=== PATIENT | female | born 1995 | race African-American/Black ===

== ENCOUNTER 2017-04-26 15:36 | Emergency (ER) | payer BC, SELFPAY ==
[2017-04-26 17:03] VITALS: BP 122/65; PULSE 92; RESP 20; TEMP 36.7; O2SAT 98; BMI 41.8
--- NOTE | 2017-04-26 17:46 | HMH.EDUTC ---
[facility] [place] Clinical Impression: Muscle spasm Disposition: Home, Self-Care Condition on Discharge: Good Instructions: DI for Muscle Spasm Additional Instructions: Take medication as prescribed Follow up with family doctor Return if needed Use over the counter Biofreeze may help to relieve pain and tension *Ibuprofen tone 6 hours with meal as needed for pain/inflammation Not additional anti-inflammatory like motrin, aleve, advil with the above amount of ibuprofen. You can still take Tylenol every 4 hours as needed if you need something else for pain *Ice 20 minutes every 2 hours for the first 48 hours after the initial injury followed by moist heat every 20 minutes 3-4 times a day to affected area *Muscle relaxer every 8 hours as needed for muscle spasms but remember, it WILL cause drowsiness You cannot take it and drive, operate machinery or care for small children. *Keep this area active, no movement leads to more stiffness, However take it easy and avoid heavy lifting pushing or pulling Prescriptions: Cyclobenzaprine HCl [Flexeril 10mg tablet] 10 mg PO TID #15 tab Ibuprofen [Ibuprofen 600mg Tab] 600 mg PO Q6H PRN #20 tab PRN Reason: Moderate Pain Forms: Work/School Release Time of Disposition: 18:07 Medical Decision Making Vital Signs: 04/26/17 17:03 Temperature 98.1 F Temperature Source Temporal Artery Scan Pulse Rate [Brachial] 92 H Respiratory Rate 20 Blood Pressure [Right Arm] 122/65 Blood Pressure Mean [Right Arm] 84 Blood Pressure Source [Right Arm] Automatic Cuff Blood Pressure Position [Right Arm] Sitting 02 Sat by Pulse Oximetry 98 Oxygen Delivery Method Room Air - Casper Inquiry Pt receiving controlled substance: No [place] was queried for this patient: No - Reevaluation(s) Time: 18:08 Reevaluation #1: Patient denies chance of [facility] [place] General Stated complaint: Back and Shoulder Pain Mode of Arrival: Ambulatory Source of Information: Patient Limitations: No Limitations Description of Symptoms (Recalled from Triage Doc. by RN): PAIN FROM RT SIDE OF THE NECK TO RT SHOULDER X 3 DAYS HEENT Symptoms (Recalled from RN notes): No Resp Symptoms (Recalled from RN notes): No Skin Symptoms (Recalled from RN notes): No MS Symptoms (Recalled from RN notes): Yes Functional Status (Recalled from RN notes): NA - History of Present Illness Provider Complaint: Patient state that she often has to lift boxes at work States that she feels like she pulled a muscle or having a muscle spasm in her neck State that it feels tight in her shoulders and she can feel the muscle tighten up when she moves it - Related Data Previous Rx's Medication Instructions Recorded Cyclobenzaprine HCl [Flexeril 10mg 10 mg PO TID #15 tab 04/26/17 tablet] Ibuprofen [Ibuprofen 600mg Tab] 600 mg PO Q6H PRN #20 tab 04/26/17 Allergies Allergy/AdvReac Type Severity Reaction Status Date / Time latex Allergy Intermediate Verified 04/26/17 16:38 - Worker's Comp Is this a Worker's Comp case?: No [facility] History I have reviewed the patient's past medical history: Yes - Social History Alcohol Intake: never - Psychiatric History Expresses thoughts of harming self/others: None Suicide Plan Description: No Plan ROS Obtained: Yes All systems reviewed & no additional complaints - Musculoskeletal Musculoskeletal: Reports other (Muscle spasm in right shoulderhurts worse when turns her head or moves arm) Physical Exam - General General appearance: alert, in no apparent distress - Neck Neck exam: Present: normal inspection - Respiratory Respiratory exam: Present: normal lung sounds bilaterally. Absent: respiratory distress - Cardiovascular Cardiovascular exam: Present: regular rate, normal rhythm. Absent: JVD - Back Exam Back 1 view image: 1 - muscle spasm and soreness worsens with movement Comment:
--- NOTE | 2017-04-26 17:57 | ED_ITS ---
[facility] [place] Clinical Impression: Muscle spasm Disposition: Home, Self-Care Condition on Discharge: Good Instructions: DI for Muscle Spasm Additional Instructions: Take medication as prescribed Follow up with family doctor Return if needed Use over the counter Biofreeze may help to relieve pain and tension *Ibuprofen tone 6 hours with meal as needed for pain/inflammation Not additional anti-inflammatory like motrin, aleve, advil with the above amount of ibuprofen. You can still take Tylenol every 4 hours as needed if you need something else for pain *Ice 20 minutes every 2 hours for the first 48 hours after the initial injury followed by moist heat every 20 minutes 3-4 times a day to affected area *Muscle relaxer every 8 hours as needed for muscle spasms but remember, it WILL cause drowsiness You cannot take it and drive, operate machinery or care for small children. *Keep this area active, no movement leads to more stiffness, However take it easy and avoid heavy lifting pushing or pulling Prescriptions: Cyclobenzaprine HCl [Flexeril 10mg tablet] 10 mg PO TID #15 tab Ibuprofen [Ibuprofen 600mg Tab] 600 mg PO Q6H PRN #20 tab PRN Reason: Moderate Pain Forms: Work/School Release Time of Disposition: 18:07 Medical Decision Making Vital Signs: 04/26/17 17:03 Temperature 98.1 F Temperature Source Temporal Artery Scan Pulse Rate [Brachial] 92 H Respiratory Rate 20 Blood Pressure [Right Arm] 122/65 Blood Pressure Mean [Right Arm] 84 Blood Pressure Source [Right Arm] Automatic Cuff Blood Pressure Position [Right Arm] Sitting 02 Sat by Pulse Oximetry 98 Oxygen Delivery Method Room Air - Cas[place] Inquiry Pt receiving controlled substance: No [place] was queried for this patient: No - Reevaluation(s) Time: 18:08 Reevaluation #1: Patient denies chance of [facility] [place] HPI - General Stated complaint: Back and Shoulder Pain Mode of Arrival: Ambulatory Source of Information: Patient Limitations: No Limitations Description of Symptoms (Recalled from Triage Doc. by RN): PAIN FROM RT SIDE OF THE NECK TO RT SHOULDER X 3 DAYS HEENT Symptoms (Recalled from RN notes): No Resp Symptoms (Recalled from RN notes): No Skin Symptoms (Recalled from RN notes): No MS Symptoms (Recalled from RN notes): Yes Functional Status (Recalled from RN notes): NA - History of Present Illness Provider Complaint: Patient state that she often has to lift boxes at work States that she feels like she pulled a muscle or having a muscle spasm in her neck State that it feels tight in her shoulders and she can feel the muscle tighten up when she moves it - Related Data Previous Rx's Medication Instructions Recorded Cyclobenzaprine HCl [Flexeril 10mg 10 mg PO TID #15 tab 04/26/17 tablet] Ibuprofen [Ibuprofen 600mg Tab] 600 mg PO Q6H PRN #20 tab 04/26/17 Allergies Allergy/AdvReac Type Severity Reaction Status Date / Time latex Allergy Intermediate Verified 04/26/17 16:38 - Worker's Comp Is this a Worker's Comp case?: No [facility] History I have reviewed the patient's past medical history: Yes - Social History Alcohol Intake: never - Psychiatric History Expresses thoughts of harming self/others: None Suicide Plan Description: No Plan ROS Obtained: Yes All systems reviewed & no additional complaints - Musculoskeletal M
[2017-04-26 18:22] VITALS: BP 122/65; PULSE 92; RESP 20; TEMP 36.7; O2SAT 98
== END 2017-04-26 18:23 | disposition home or self-care (01) ==
PROVIDERS: Emergency Provider Nurse Practitioner
DX: M62.838 Other muscle spasm (principal); M25.511 Pain in right shoulder; Z91.040 Latex allergy status
CPT/HCPCS: 99202

== ENCOUNTER 2023-07-26 19:38 | Emergency (ER) | payer MEDICAID, SELFPAY ==
[2023-07-26 19:38] VITALS: BP 162/92; PULSE 118; RESP 15; TEMP 37.4; O2SAT 98; BMI 47.3
--- NOTE | 2023-07-26 19:48 | XR_ITS ---
PROCEDURE INFORMATION: Exam: XR Chest Exam date and time: 07/26/23 08:20 PM Age: 27 years old Clinical indication: Shortness of breath; Additional info: SOA, tachycardia TECHNIQUE: Imaging protocol: Radiologic exam of the chest. Views: 1 view. COMPARISON: No relevant prior studies available. FINDINGS: Lungs: Unremarkable. No consolidation. Pleural spaces: Unremarkable. No pleural effusion. No pneumothorax. Heart/Mediastinum: Unremarkable. No cardiomegaly. Bones/joints: Unremarkable. IMPRESSION: No acute findings.
[2023-07-26] MEDS: LORazepam 1MG TABLET 1 MG PO (19:53)
--- NOTE | 2023-07-26 19:54 | ECG_ITS ---
APPROVED REPORT Exam: Resting ECG HR:110 bpm ECG Measurements Heart Rate 110 AXES MN 149 P 60 QRSd 85 QRS 59 QT 286 T 17 QTc 351 Conclusion SINUS TACHYCARDIA Electronically signed by : LAST LOZANO, 07/26/2023 22:40:12
[2023-07-26 19:55] LABS: Basophils # 0.1 K/mm3 (0-0.2); Basophils % 0.8 % (0.1-2.0); Eosinophils # 0.1 K/mm3 (0.0-0.4); Eosinophils % 1.3 % (0.1-12.0); Hematocrit 40.5 % (37.0-47.0); Hemoglobin 13.1 g/dL (12.2-16.2); Lymphocytes % 30.5 % (10-50); Mean Corpuscular HGB Conc 32.3 g/dL (31.8-35.4); Mean Corpuscular Hemoglobin 28.1 pg (27.0-31.2); Mean Corpuscular Volume 86.8 fl (81-99); Mean Platelet Volume 7.5 fl (7.4-10.4); Monocytes # 0.3 K/mm3 (0.1-1.0); Monocytes % 4.3 % (1.7-9.3); Neutrophils # 4.2 K/mm3 (1.8-7.8); Neutrophils % 63.1 % (37.0-80.0); Platelet Count 443 K/mm3 (142-424); Red Blood Count 4.66 M/mm3 (4.20-5.40); Red Cell Distribution Width 15.2 % (11.5-17.5); White Blood Count 6.7 K/mm3 (4.8-10.8)
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
[2023-07-26 20:01] LABS: Magnesium 1.5 mg/dl (1.6-2.3)
[2023-07-26 20:03] LABS: Alanine Aminotransferase 28 U/L (12-78); Albumin Level 4.5 g/dl (3.5-5.0); Albumin/Globulin Ratio 1.3 (1.1-1.8); Alkaline Phosphatase 96 U/L (38-126); Anion Gap 19.5 mEq/L (5-15); Aspartate Amino Transferase 33 U/L (14-36); Bilirubin,Total 0.5 mg/dl (0.2-1.3); Blood Urea Nitrogen 10 mg/dl (7-17); Calcium 10.3 mg/dl (8.4-10.2); Carbon Dioxide 21 mmol/L (22.0-30.0); Chloride 103 mmol/L (98-107); Creatinine Clearance Estimated 97 mL/min (50-200); Estimated Glomerular Filt Rate 102 ml/min (>60); GFR (African American) 123 ML/MIN (>60); Globulin 3.4 g/dL (1.3-3.2); Glucose 135 mg/dl (74-100); Potassium 3.5 mmoL/L (3.5-5.1); Sodium 140 mmol/L (136-145); Total Protein,Serum 7.9 g/dl (6.3-8.2)
[2023-07-26 20:05] LABS: D-Dimer 0.34 ug/mL (0.0-0.5)
[2023-07-26 20:19] LABS: HCG,Quantitative < 2 mIU/ml (0-5.42)
[2023-07-26] MEDS: MAGNESIUM OXIDE 400MG TABLET 800 MG PO (20:39)
[2023-07-26] MEDS: MAGNESIUM SULFATE IN WATER 2 GM/50 ML PIGGYBACK IV (20:39)
[2023-07-26] MEDS: KETOROLAC 30MG/ML VIAL 15 MG IV (20:39)
[2023-07-26] MEDS: ACETAMINOPHEN 500MG TAB 1000 MG PO (20:39)
[2023-07-26 20:50] LABS: Troponin I < 0.01 ng/ml (0.00-0.034)
[2023-07-26 21:08] LABS: Microscopic, Urine URINE MICROSCOPIC (MICROSCOPIC)
[2023-07-26 21:22] LABS: Appearance,Urine CLEAR (Clear); Bilirubin,Urine Negative (Negative); Blood, Urine Negative (Negative); Color,Urine YELLOW (Yellow); Glucose,Urine (UA) Negative (Negative); Ketones,Urine Negative (Negative); Leukocyte Esterase,Urine Negative (Negative); Nitrate,Urine Negative (Negative); PH,Urine 7.5 (5.0-8.5); Protein,Urine Negative (Negative); Specific Gravity, Urine 1.025 (1.005-1.030); Urobilinogen,Urine 0.2 EU/dl (0.2)
[2023-07-26 21:33] LABS: Bacteria,Urine Trace /lpf; Squamous Epithelial Cell,Urine Occasional #/hpf (0-5); WBC,Urine Occasional #/hpf (0-3)
[2023-07-26 21:39] VITALS: BP 138/92; PULSE 90; RESP 20; TEMP 37.1; O2SAT 100
== END 2023-07-26 21:42 | disposition home or self-care (01) ==
PROVIDERS: Emergency Provider Emergency Medicine
DX: M25.551 Pain in right hip (principal); R00.0 Tachycardia, unspecified; F41.0 Panic disorder [episodic paroxysmal anxiety]; E83.42 Hypomagnesemia
CPT/HCPCS: 71045; 80053; 81001; 83735; 84484; 84702; 85025; 85378; 93005; 96365; 96375; 99284; J3475